=== PATIENT | female | born 1985 | race Caucasian/White ===

== ENCOUNTER 2019-11-24 18:06 | Emergency (ER) | payer OTHER ==
[~2019-11-24] VITALS: Ht 175.3 cm; Wt 75.4 kg
[~2019-11-24 18:06] MED LIST: IBUP-1223 PO; OXYC-302 PO
[2019-11-24 18:07] VITALS: BP 128/84
--- NOTE | 2019-11-24 18:12 | NUR ---
PT HAND WRAPPED AND GIVEN GAUZE. PT GIVNE ICE PACK WELL.
--- NOTE | 2019-11-24 18:30 | NUR ---
LEGAL DOCUMENT ASSISTANT: PT TO ROOM FROM LOBBY AT THIS TIME. CARIN
[2019-11-24] MEDS ORDERED: LIDOCAINE-MPF 1%, 5ML ONE (18:34)
[2019-11-24] MEDS ORDERED: LIDOCAINE-MPF 1%, 5ML INFIL ONE (19:00)
[2019-11-24] MEDS ORDERED: CEFAZOLIN 1,000 MG ONE (19:25)
[2019-11-24] MEDS ORDERED: CEFAZOLIN 1,000 MG IM ONE (19:30)
== END 2019-11-24 20:08 | disposition home or self-care (01) ==
LOC: ED 19:45
DX: S61.012A Laceration without foreign body of left thumb without damage to nail, initial encounter (principal); X58.XXXA Exposure to other specified factors, initial encounter; Y93.89 Activity, other specified; Y92.009 Unspecified place in unspecified non-institutional (private) residence as the place of occurrence of the external cause; Y99.8 Other external cause status
CPT/HCPCS: 12042; 96372; 99284; J0690